=== PATIENT | male | born 1950 | race Caucasian/White ===

== ENCOUNTER 2018-03-13 13:30 | Inpatient (IN) | payer MEDICARE ==
[2018-03-13] MEDS ORDERED: Acetaminophen 325 MG TAB PO PRN (16:57)
[2018-03-13] MEDS: Famotidine 20 MG TAB PO SCH (20:19)
[2018-03-13] MEDS: Senokot S 8.6-50 MG TAB PO SCH (20:19)
[2018-03-13] MEDS: Heparin 5,000 UNITS/ML VIAL SC SCH (20:19)
[2018-03-13] MEDS: HYDROcodone/Acetaminophen 7.5/325 mg Tablet PO PRN (20:20)
[2018-03-13] MEDS: Magnesium Chloride 64 MG TAB PO SCH (21:59)
[2018-03-14] MEDS: AMOXicillin 500 MG CAP PO SCH ×2 (00:16→06:11)
[2018-03-14 05:37] LABS: #Basophils 0.1 thou/uL (0.0-0.2); #Eosinphils 0.1 thou/uL (0.0-0.7); #Lymphocytes 1.7 thou/uL (1.20-3.40); #Monocytes 1.2 thou/uL (0.11-0.59); #Neutrophils 12.9 thou/uL (1.40-6.50); %Basophils 0.4 % (0.0-1.0); %Eosinophils 0.4 % (0.0-10.0); %Lymphocytes 10.8 % (21.0-51.0); %Monocytes 7.3 % (0.0-10.0); %Neutrophils 81.2 % (42.0-75.0); Hemoglobin 8.7 g/dL (14.0-18.0); Mean Corpuscular HGB CONC 31.8 g/dL (32.0-36.0); Mean Corpuscular Hemoglobin 28.5 pg (27.0-31.0); Mean Corpuscular Volume 89.5 fL (78.0-98.0); Mean Platelet Volume 5.7 fL (7.4-10.4); Platelet Count 243 thou/uL (130-400); RBC Distribution Width 14.2 % (11.5-14.5); Red Blood Cell (RBC) Count 3.06 mill/uL (4.70-6.10); White Blood Cell (WBC) Count 15.9 thou/uL (4.8-10.8)
[2018-03-14] MEDS: AMOXicillin 250 MG CAP PO SCH ×3 (06:10→21:18)
[2018-03-14] MEDS: Senokot S 8.6-50 MG TAB PO SCH (08:54)
[2018-03-14] MEDS: Bicalutamide 50 MG TAB PO SCH (08:56)
[2018-03-14] MEDS: Multivitamin W/ Minerals 1 TAB PO SCH (08:56)
[2018-03-14] MEDS: Aspirin 81 mg Enteric Coated Tablet PO SCH (08:56)
[2018-03-14] MEDS: Tamsulosin HCl 0.4 MG CAP PO SCH (08:56)
[2018-03-14] MEDS: predniSONE 10 MG TAB PO SCH (08:57)
[2018-03-14] MEDS: Fludrocortisone Acetate 0.1 MG TAB PO SCH (08:57)
[2018-03-14] MEDS: Finasteride 5 MG TAB PO SCH (08:57)
[2018-03-14] MEDS: Famotidine 20 MG TAB PO SCH ×2 (08:57→21:17)
[2018-03-14] MEDS: Heparin 5,000 UNITS/ML VIAL SC SCH ×2 (08:58→21:18)
[2018-03-14] MEDS: HYDROcodone/Acetaminophen 7.5/325 mg Tablet PO PRN ×3 (09:00→22:42)
[2018-03-14] MEDS ORDERED: Polyethylene Glycol 3350 17 GM Packet PO SCH (09:00)
[2018-03-14] MEDS: KPHOS NEUTRAL PO SCH (09:03)
[2018-03-14] MEDS: Dronabinol 2.5 MG CAP PO SCH ×2 (09:04→16:16)
[2018-03-14] MEDS: Magnesium Chloride 64 MG TAB PO SCH ×2 (10:51→22:46)
[2018-03-14] MEDS ORDERED: Polyethylene Glycol 3350 17 GM Packet PO PRN (12:36)
[2018-03-14] MEDS ORDERED: Senokot S 8.6-50 MG TAB PO PRN (12:36)
--- NOTE | 2018-03-14 12:44 | PRG ---
DATE OF SERVICE: 03/14/2018 SUBJECTIVE: Mr. Dooley is doing well. He is resting comfortably. Pain medicines are helping. He di d have one episode of diarrhea. No other concerns or questions. No family at bedside. OBJECTIVE: VITAL SIGNS: He is afebrile, heart rate 99, respirations 18, oxygen saturation 92% on room air, bloo d pressure 133/64. CARDIOVASCULAR: S1, S2 plus. RESPIRATORY: Normal vesicular breath sounds. ABDOMEN: Soft, nontender. Bowel sounds heard in all quadrants. EXTREMITIES: Without cyanosis or clubbing. Woodall catheter in place. CENTRAL NERVOUS SYSTEM: Generalized weakness. LABORATORY VALUES: White count is the same 15.9, H and H is 8.7 and 27.4. Electrolytes are pending. IMPRESSION: 1. Resolving enterococcal urinary tract infection and bacteremia. 2. Chronic urinary retention. Has an indwelling Woodall. 3. Metastatic prostate cancer, now on adrenosuppressive therapy with ketaconazole and mineralocortic oid and glucocorticoid replacement therapy with prednisone and Florinef. 4. Resolved acute renal failure. 5. Persistent leukocytosis. 6. Anemia, likely of chronic disease. PLAN: 1. Continue current medications. 2. Nutritional support. 3. DVT and stress ulcer prophylaxis. 4. Decubitus precautions. 5. Physical therapy and occupational therapy. 6. Await BNP. 7. Discussed with patient in detail. Dr. Gomez or Dr. Robles will be following him from tom[place] w until his discharge. Discussed with nursing as well. His MiraLax will be discontinued if he has a ny further diarrhea. We will get stool for C. difficile. Given the orders to nursing. We will add a probiotic.
--- NOTE | 2018-03-14 13:49 | HP ---
DATE OF DISCHARGE: 03/13/2018 DATE OF EXAMINATION: 03/14/2018 CHIEF COMPLAINTS: Enterococcal bacteremia with metastatic prostate cancer and deconditioning for con tinuation of antibiotics, nutritional support and physical therapy. BRIEF HISTORY: This is a 67-year-old male who has history of prostate cancer and opted to just monitor it and not undergo any chemotherapy. Apparently developed urinary retention and was on a chronic Woodall catheter. He apparently was doing well until yearly January or February when he had issues with Woodall catheter, so he just removed it and did not have it replaced. He apparently had difficult y with urination over the weekend and then started developing fever, chills, and weakness. He was ev aluated in the emergency room as his outpatient antibiotics were not helping. He was noted to have a temperature of 103.2, blood pressure of 117/77 and was admitted to the hospital for urosepsis and ur inary retention. He was diagnosed with enterococcal bacteremia as well as enterococcal UTI, was init ially on IV antibiotics and then was switched over to amoxicillin and he is to continue it for 2 more weeks. He also had a CAT scan done which shows metastatic prostate cancer and apparently is amenabl e for treatment at this point from Urology. Urology is apparently doing some adrenal suppression wit h ketaconazole and during that time, he will be on prednisone and Florinef. He is supposed to follow up with Urology in a week where he will be transitioned to Lupron injections and at that time his pr ednisone and Florinef will be discontinued. He currently is on Casodex. Other than pain, he denies any complaints. He denies any fever or chills. He denies any chest pain or shortness of breath. He does have a Woodall catheter in. No family at bedside. PAST MEDICAL HISTORY: 1. Hypertension. 2. Degenerative joint disease. 3. Familial tremors. 4. Prostate cancer. 5. Resolving enterococcal UTI and bacteremia. 6. Chronic urinary retention. 7. Resolved acute renal failure. 8. Generalized weakness. PAST SURGICAL HISTORY: Right wrist surgery. ALLERGIES: No known drug allergies. MEDICATIONS: He has been transferred here on the following medications: 1. Amoxicillin 500 mg t.i.d. for 10 more days. 2. Casodex 50 mg daily. 3. Aspirin 81 mg daily. 4. Cardizem 30 mg p.o. b.i.d. since he had an episode of SVT. 5. Marinol 2.5 mg b.i.d. that seems to be helping with his appetite. 6. Pepcid 20 mg b.i.d. 7. Finasteride 5 mg daily. 8. Florinef 0.1 mg daily. 9. Heparin 5000 units b.i.d. 10. [place] 7.5 mg q.4 hours p.r.n. 11. Ketaconazole 400 mg t.i.d. 12. K-Phos Neutral 250 mg daily. 13. Slow-Mag 64 mg b.i.d. 14. Multivitamin 1 tablet daily. 15. MiraLax 17 grams in 8 ounce of water daily. 16. Prednisone 10 mg daily. 17. Senokot 1 tablet b.i.d. 18. Flomax 0.4 mg daily. He did have some diarrhea this morning and I will stop his MiraLax and change his Senokot to p.r.n. FAMILY HISTORY: Positive for tremor. PSYCHOSOCIAL HISTORY: He apparently ambulates with the help of a cane. He chews tobacco. Social al cohol intake, no drug abuse. REVIEW OF SYSTEMS: Cardiovascular System: Denies any chest pain, shortness of breath, palpitations, PND, orthopnea, pedal edema. Respiratory System: Denies any chronic cough, expectoration or pleuri tic type chest pain. Gastrointestinal System: Denies any nausea, vomiting, diarrhea, constipation, hematemesis, melena, hematochezia. Genitourinary System: Chronic urinary retention requiring Woodall catheter. No hematuria. Central nervous system: Generalized weakness. SHEENT: No difficulty with speech, vision, hearing or swallowing. PHYSICAL EXAMINATION: GENERAL: Very pleasant 67-year-old male resting comfortably in no apparent distress. He r esponds appropriately to questions. He is alert, awake, and oriented x3. VITAL SIGNS: He is afebrile, heart rate is 82, respirations 20, oxygen saturation 95% on room air, b lood pressure 111/61. HEENT: Normocephalic, atraumatic. Pupils equal and reactive to light and accommodation. NECK: No JVD, thyromegaly or adenopathy, throat exudates, no carotid bruits. CARDIOVASCULAR SYSTEM: S1, S2 plus, rate and rhythm regular. RESPIRATORY SYSTEM: Normal vesicular breath sounds heard in all lung pate. ABDOMEN: Soft, nontender, bowel sounds heard in all quadrants. EXTREMITIES: Without cyanosis or clubbing. Peripheral pulses are palpable. CENTRAL NERVOUS SYSTEM: Grossly nonfocal except for generalized weakness. Woodall catheter in place. LABORATORY VALUES: Done on 03/11/2018 and the previous facility shows a white count of 15.6, H&H is 9.5 and 28.6. Sodium 134, potassium 4.1, BUN and creatinine is 21 and 0.97. IMPRESSION: 1. Resolving enterococcal urinary tract infection and bacteremia. 2. Resolved acute renal failure. 3. Episode of supraventricular tachycardia. 4. Deconditioning. 5. Metastatic prostate cancer. 6. Chronic urinary retention. 7. Hyponatremia. 8. Persistent leukocytosis. PLAN: 1. Continue current medications. 2. Monitor electrolytes and blood counts. 3. Monitor for any signs of adrenal insufficiency. 4. Physical therapy and occupational therapy. 5. Nutritional support. 6. DVT prophylaxis. He is on heparin. 7. Routine laboratory values. 8. Decubitus precautions. 9. Stress ulcer prophylaxis. He is on Pepcid. 10. Discussed with patient in detail. All questions answered. 11. No family at bedside.
[2018-03-15] MEDS: AMOXicillin 250 MG CAP PO SCH ×3 (05:22→21:17)
[2018-03-15] MEDS: HYDROcodone/Acetaminophen 7.5/325 mg Tablet PO PRN ×3 (05:22→21:17)
[2018-03-15 05:37] LABS: Anion Gap 17 mmol/L (10-20); BUN (Urea Nitrogen) 19 mg/dL (8.4-25.7); Calc. Creatinine Clearance 88 mL/min (70-130); Calcium 8.6 mg/dL (7.8-10.44); Carbon Dioxide 27 mmol/L (23-31); Chloride 99 mmol/L (98-107); Estimated GFR-MDRD 68; Glucose 113 mg/dL (80-115); Potassium 4.1 mmol/L (3.5-5.1); Sodium 139 mmol/L (136-145)
[2018-03-15] MEDS: Multivitamin W/ Minerals 1 TAB PO SCH (08:15)
[2018-03-15] MEDS: Fludrocortisone Acetate 0.1 MG TAB PO SCH (08:15)
[2018-03-15] MEDS: Famotidine 20 MG TAB PO SCH ×2 (08:15→21:19)
[2018-03-15] MEDS: Dronabinol 2.5 MG CAP PO SCH ×2 (08:15→16:11)
[2018-03-15] MEDS: Magnesium Chloride 64 MG TAB PO SCH ×2 (08:17→21:16)
[2018-03-15] MEDS: Bicalutamide 50 MG TAB PO SCH (08:17)
[2018-03-15] MEDS: Aspirin 81 mg Enteric Coated Tablet PO SCH (08:17)
[2018-03-15] MEDS: Finasteride 5 MG TAB PO SCH (08:17)
[2018-03-15] MEDS: predniSONE 10 MG TAB PO SCH (08:17)
[2018-03-15] MEDS: Tamsulosin HCl 0.4 MG CAP PO SCH (08:17)
[2018-03-15] MEDS: KPHOS NEUTRAL PO SCH (08:18)
[2018-03-15] MEDS: Heparin 5,000 UNITS/ML VIAL SC SCH ×2 (08:18→21:19)
[2018-03-15] MEDS ORDERED: Heparin 5,000 UNITS/ML VIAL SC SCH (21:15)
[2018-03-16] MEDS: HYDROcodone/Acetaminophen 7.5/325 mg Tablet PO PRN ×2 (03:10→21:23)
[2018-03-16] MEDS: AMOXicillin 250 MG CAP PO SCH ×3 (05:52→21:24)
[2018-03-16] MEDS: Dronabinol 2.5 MG CAP PO SCH ×2 (07:29→16:14)
[2018-03-16] MEDS: predniSONE 10 MG TAB PO SCH (08:40)
[2018-03-16] MEDS: Bicalutamide 50 MG TAB PO SCH (08:43)
[2018-03-16] MEDS: Famotidine 20 MG TAB PO SCH ×2 (08:43→21:23)
[2018-03-16] MEDS: Fludrocortisone Acetate 0.1 MG TAB PO SCH (08:43)
[2018-03-16] MEDS: Tamsulosin HCl 0.4 MG CAP PO SCH (08:44)
[2018-03-16] MEDS: Aspirin 81 mg Enteric Coated Tablet PO SCH (08:45)
[2018-03-16] MEDS: Finasteride 5 MG TAB PO SCH (08:45)
[2018-03-16] MEDS: Multivitamin W/ Minerals 1 TAB PO SCH (08:45)
[2018-03-16] MEDS: Heparin 5,000 UNITS/ML VIAL SC SCH ×2 (08:46→21:23)
[2018-03-16] MEDS: Magnesium Chloride 64 MG TAB PO SCH ×2 (09:28→21:21)
[2018-03-16] MEDS: KPHOS NEUTRAL PO SCH (09:28)
[2018-03-16 12:38] VITALS: BMI 27.9
--- NOTE | 2018-03-16 17:42 | PRG ---
DATE OF SERVICE: 03/16/2018 DATE OF ADMISSION: 03/13/2018 HISTORY OF PRESENT ILLNESS: Mr. Dooley is a very pleasant 67-year-old white male with history of pros valencia cancer that recently developed urinary retention. He has been placed on chronic Woodall catheter and doing well until January or February when he had issues with a catheter. It was removed and he had some urinary retention. He developed urosepsis and was diagnosed with enterococcal bacteremia as well as enterococcal urinary tract infection. He was initially started on IV antibiotics and eventually swi tched over to amoxicillin. He did have a CT scan which showed metastatic prostate cancer and Urology is suppressing his adrenal glands with ketaconazole while he is on prednisone and Florinef. He is t o follow up with Urology next week to transition over to Lupron injections. Until then, he will be o n prednisone and Florinef. He also is on Casodex at this time. SUBJECTIVE: The patient states he is doing well and just somewhat tired. He states he is getting a little therapy and moving around. OBJECTIVE: VITAL SIGNS: Today reveal blood pressure this morning was 134/67, pulse 91-95, respirations 18, O2 s at 99%-100% on room air, T-max 98.1. GENERAL: This is a well-developed, well-nourished, white male in no apparent distress at this time. HEENT: Reveals normocephalic, nontraumatic cranium. The pupils are equally round. Extraocular move ments intact. Nose and throat are slightly dry. NECK: Supple, without mass, nodes or bruits. CHEST: Clear to auscultation. No rales, rhonchi, wheezes or cough is heard. HEART: Reveals a regular rate and rhythm without murmurs, gallops or rubs. ABDOMEN: Soft and nontender without organomegaly. Normal bowel sounds are noted. GENITOURINARY: Reveals Woodall in place. EXTREMITIES: Reveal no clubbing, cyanosis or edema. The patient is oriented x3. LABORATORY DATA: No recent labs done today, but yesterday the patient's sodium is 139, potassium 4.1 with BUN 19, creatinine 1.09. GFR 68. Glucose is 113. IMPRESSION: 1. Enterococcal urinary tract infection and bacteremia. 2. Resolved acute renal failure. 3. Single episodes of ventricular tachycardia. 4. Generalized weakness. 5. Metastatic prostate cancer followed by Urology next week. 6. Chronic urinary retention with Woodall catheter in place. 7. History of hyponatremia. 8. Persistent leukocytosis. PLAN: 1. Continue present medications. 2. Continue to monitor electrolytes and blood counts. 3. Monitor for any signs of adrenal insufficiency. 4. Physical therapy and occupational therapy. 5. Stress ulcer prophylaxis. 6. Decubitus precautions. 7. Deep venous thrombosis prophylaxis. The patient is on heparin. 8. No family at bedside. 9. Continue present course of therapy.
[2018-03-17] MEDS: HYDROcodone/Acetaminophen 7.5/325 mg Tablet PO PRN ×3 (05:30→16:45)
[2018-03-17] MEDS: AMOXicillin 250 MG CAP PO SCH ×3 (05:30→21:12)
[2018-03-17] MEDS: Dronabinol 2.5 MG CAP PO SCH ×2 (07:39→16:45)
[2018-03-17] MEDS: predniSONE 10 MG TAB PO SCH (08:55)
[2018-03-17] MEDS: KPHOS NEUTRAL PO SCH (09:27)
[2018-03-17] MEDS: Aspirin 81 mg Enteric Coated Tablet PO SCH (09:27)
[2018-03-17] MEDS: Tamsulosin HCl 0.4 MG CAP PO SCH (09:27)
[2018-03-17] MEDS: Multivitamin W/ Minerals 1 TAB PO SCH (09:28)
[2018-03-17] MEDS: Famotidine 20 MG TAB PO SCH ×2 (09:28→21:12)
[2018-03-17] MEDS: Fludrocortisone Acetate 0.1 MG TAB PO SCH (09:29)
[2018-03-17] MEDS: Bicalutamide 50 MG TAB PO SCH (09:30)
[2018-03-17] MEDS: Magnesium Chloride 64 MG TAB PO SCH ×2 (09:32→21:10)
[2018-03-17] MEDS: Finasteride 5 MG TAB PO SCH (09:33)
[2018-03-17] MEDS: Heparin 5,000 UNITS/ML VIAL SC SCH ×2 (09:35→21:13)
--- NOTE | 2018-03-17 09:38 | PRG ---
DATE OF SERVICE: 03/17/2018 DATE OF ADMISSION: 03/13/2018 HISTORY OF PRESENT ILLNESS: Mr. Dooley is a pleasant 67-year-old white male that has prostate cancer, deconditioning and urinary retention. He had chronic Woodall catheter in place and was doing well unt february until the catheter was removed. He has some urinary retention, but then developed urosepsis with Enterococcus bacteremia and enterococcal urinary tract infection. He was started on IV antibiot ics and eventually switched over to amoxicillin. He had a CT scan which showed metastatic prostate c ancer. Urology suppressing his adrenal glands with ketoconazole while he is on prednisone and [place] ef. He is to be followed up with Urology next week and transition over to Lupron injections. Until then, we will continue his present course. He is also on Casodex. SUBJECTIVE: The patient unfortunately had a panic attack this morning and the nurse had to go and ta lk him down for approximately 20 minutes. Just felt that he just became anxious. He did get started on fentanyl 25 patch which seems to help a little bit. PHYSICAL EXAMINATION: VITAL SIGNS: Today reveal blood pressure 126/69, pulse 90, respirations 18-20, O2 sat 94% on room ai r, T-max 98.2. GENERAL: This is a well-developed, well-nourished, very pleasant white male in no apparent distress at this time. HEENT: Reveals normocephalic, nontraumatic cranium. Pupils are equal, round, and reactive. Extraoc ular movements are intact. Nose and throat are dry. NECK: Supple, without mass, nodes or bruits. LUNGS: Chest is clear to auscultation. No rales, rhonchi or wheezes are heard. HEART: Reveals a regular rate and rhythm. No murmurs, gallops or rubs noted. ABDOMEN: Soft, nontender, without organomegaly, normal bowel sounds are noted. : Deferred. Woodall catheter is in place. EXTREMITIES: Reveal no clubbing, cyanosis or edema. NEUROLOGIC: The patient is oriented x3. The patient did have a panic attack this morning. IMPRESSION: 1. Enterococcal urinary tract infection bacteremia. 2. Resolved acute renal insufficiency. 3. Panic attack this morning. 4. Prior episodes of ventricular tachycardia. 5. Generalized weakness. 6. Metastatic prostate cancer, followed by Urology next week. 7. Chronic urinary retention with Woodall catheter. 8. History of hyponatremia. 9. Persistent leukocytosis. PLAN: 1. Continue present medications. 2. We will add Xanax 0.25 p.r.n. panic attacks. 3. Continue to monitor the patient's electrolytes and blood counts. 4. We will monitor the patient for signs and symptoms of adrenal insufficiency. 5. Continue PT and OT. 6. Stress ulcer prophylaxis. 7. Decubitus precautions. 8. Continue Woodall catheterization. 9. Deep venous thrombosis. 10. No family is at bedside. 11. Continue present course of therapy.
[2018-03-17] MEDS: ALPRAZolam 0.25 MG TAB PO PRN (21:13)
[2018-03-18] MEDS: HYDROcodone/Acetaminophen 7.5/325 mg Tablet PO PRN ×2 (03:24→14:03)
[2018-03-18] MEDS: AMOXicillin 250 MG CAP PO SCH ×3 (05:22→21:11)
[2018-03-18] MEDS: Dronabinol 2.5 MG CAP PO SCH ×2 (08:22→17:20)
[2018-03-18] MEDS: predniSONE 10 MG TAB PO SCH (08:22)
--- NOTE | 2018-03-18 09:01 | PRG ---
DATE OF SERVICE: 03/18/2018 DATE OF ADMISSION: 03/13/2018 HISTORY OF PRESENT ILLNESS: Mr. Dooley is a 67-year-old white male that had a panic attack yesterday. He will be started on Xanax if that act happens again. Otherwise, the patient has prostate cancer, decreasing urinary retention. He continues on amoxicillin at this time for urinary tract infection. He had a CT scan which showed metastatic prostate cancer and Urology is supposed to see him next we ek to get him started on Lupron injections. Until then, he will continue his course of suppressing a drenal glands with ketoconazole while he is on prednisone and Florinef. The patient states he feels much better today and has no complaints today. PHYSICAL EXAMINATION: VITAL SIGNS: Today reveal blood pressure 121/61, pulse 88-90, respirations 19, O2 sat 93%-94% on devante m air, T-max 98.7. GENERAL: This is a well-developed, well-nourished, pleasant white male in no apparent distress at th is time. HEENT: Reveals normocephalic, nontraumatic cranium. Pupils equal, round, and reactive. Extraocular movements are intact. Nose and throat are slightly dry. NECK: Supple, without mass, nodes or bruits. CHEST: Clear to auscultation. No rales, rhonchi or wheezes are heard. HEART: Reveals a regular rate and rhythm without murmurs, gallops or rubs. ABDOMEN: Soft and nontender without organomegaly, normal bowel sounds are noted. No rebound or guar ding is noted. GENITOURINARY: Deferred. EXTREMITIES: Reveal no clubbing, cyanosis or edema. NEUROLOGIC: The patient is oriented x3. IMPRESSION: 1. Enterococcal urinary tract infection bacteremia. 2. Acute renal insufficiency, much improved. 3. Panic attack yesterday morning. 4. Prior episodes of ventricular tachycardia. 5. Generalized weakness. 6. Metastatic prostate cancer followed by Urology and so patient is supposed to have Lupron injectio n next week. 7. Chronic urinary tract infection, chronic urinary retention with Woodall catheter. 8. History of hypernatremia. 9. Persistent leukocytosis. PLAN: 1. Continue present meds. 2. Xanax p.r.n. panic attacks. 3. Continue to follow the patient's electrolytes and blood counts. 4. Monitor the patient for signs and symptoms of adrenal insufficiency. 5. Continue PT and OT. 6. Stress ulcer prophylaxis. 7. Decubitus precautions. 8. Continue Woodall catheterization. 9. Deep venous thrombosis prophylaxis. 10. Family at bedside. 11. Continue present course of therapy.
[2018-03-18] MEDS: Fludrocortisone Acetate 0.1 MG TAB PO SCH (09:50)
[2018-03-18] MEDS: Famotidine 20 MG TAB PO SCH ×2 (09:50→21:12)
[2018-03-18] MEDS: Aspirin 81 mg Enteric Coated Tablet PO SCH (09:50)
[2018-03-18] MEDS: Magnesium Chloride 64 MG TAB PO SCH ×2 (09:50→21:10)
[2018-03-18] MEDS: Finasteride 5 MG TAB PO SCH (09:50)
[2018-03-18] MEDS: Multivitamin W/ Minerals 1 TAB PO SCH (09:56)
[2018-03-18] MEDS: Bicalutamide 50 MG TAB PO SCH (09:56)
[2018-03-18] MEDS: KPHOS NEUTRAL PO SCH (09:58)
[2018-03-18] MEDS: Tamsulosin HCl 0.4 MG CAP PO SCH (09:58)
[2018-03-18] MEDS: Heparin 5,000 UNITS/ML VIAL SC SCH ×2 (10:11→21:13)
[2018-03-18] MEDS: ALPRAZolam 0.25 MG TAB PO PRN (21:13)
[2018-03-19] MEDS: HYDROcodone/Acetaminophen 7.5/325 mg Tablet PO PRN ×2 (04:45→12:24)
[2018-03-19] MEDS: Dronabinol 2.5 MG CAP PO SCH ×2 (06:21→18:43)
[2018-03-19] MEDS: AMOXicillin 250 MG CAP PO SCH ×3 (06:21→20:59)
[2018-03-19] MEDS ORDERED: K-Phos Neutral 250 MG TAB PO SCH (10:15)
[2018-03-19] MEDS: Heparin 5,000 UNITS/ML VIAL SC SCH ×2 (12:24→20:58)
[2018-03-19] MEDS: Famotidine 20 MG TAB PO SCH ×2 (12:26→20:59)
[2018-03-19] MEDS: Finasteride 5 MG TAB PO SCH (12:26)
[2018-03-19] MEDS: Aspirin 81 mg Enteric Coated Tablet PO SCH (12:27)
[2018-03-19] MEDS: Fludrocortisone Acetate 0.1 MG TAB PO SCH (12:27)
[2018-03-19] MEDS: Tamsulosin HCl 0.4 MG CAP PO SCH (12:27)
[2018-03-19] MEDS: Multivitamin W/ Minerals 1 TAB PO SCH (12:27)
[2018-03-19] MEDS: predniSONE 10 MG TAB PO SCH (12:27)
[2018-03-19] MEDS: Bicalutamide 50 MG TAB PO SCH (12:27)
[2018-03-19] MEDS: Magnesium Chloride 64 MG TAB PO SCH ×2 (12:28→20:58)
[2018-03-19] MEDS: KPHOS NEUTRAL PO SCH (12:30)
[2018-03-19] MEDS: ALPRAZolam 0.25 MG TAB PO PRN (20:59)
[2018-03-20] MEDS: AMOXicillin 250 MG CAP PO SCH ×3 (05:17→20:43)
[2018-03-20] MEDS: Dronabinol 2.5 MG CAP PO SCH ×2 (09:51→16:08)
[2018-03-20] MEDS: predniSONE 10 MG TAB PO SCH (09:51)
[2018-03-20] MEDS: Aspirin 81 mg Enteric Coated Tablet PO SCH (09:51)
[2018-03-20] MEDS: Bicalutamide 50 MG TAB PO SCH (09:52)
[2018-03-20] MEDS: Famotidine 20 MG TAB PO SCH ×2 (09:54→20:45)
[2018-03-20] MEDS: Finasteride 5 MG TAB PO SCH (09:55)
[2018-03-20] MEDS: Fludrocortisone Acetate 0.1 MG TAB PO SCH (09:55)
[2018-03-20] MEDS: Heparin 5,000 UNITS/ML VIAL SC SCH ×2 (09:55→20:43)
[2018-03-20] MEDS: Magnesium Chloride 64 MG TAB PO SCH ×2 (09:56→20:42)
[2018-03-20] MEDS: Tamsulosin HCl 0.4 MG CAP PO SCH (09:56)
[2018-03-20] MEDS: Multivitamin W/ Minerals 1 TAB PO SCH (09:56)
[2018-03-20] MEDS: K-Phos Neutral 250 MG TAB PO SCH (13:57)
[2018-03-20] MEDS: HYDROcodone/Acetaminophen 7.5/325 mg Tablet PO PRN ×2 (14:03→20:44)
--- NOTE | 2018-03-20 21:44 | PRG ---
DATE OF SERVICE: 03/20/2018 DATE OF ADMISSION: 03/13/2018 HISTORY OF PRESENT ILLNESS: Mr. Dooley is a very pleasant 67-year-old white male unfortunately has me tastatic prostate cancer. He is followed by Urology was started on Lupron injections a couple of day s ago. He eventually was stabilized and transferred to [facility] for physical thera py and occupational therapy. I did discuss with PT and OT and the patient is actually doing very well. We will discharge him on F riday. The patient states he continues to feel better and is much stronger. PHYSICAL EXAMINATION: VITAL SIGNS: Today reveal blood pressure 143/74, pulse 86-96, respirations 18-20, O2 sat 92% on room air, T-max 98.0. GENERAL: This is a well-developed, well-nourished, very pleasant white male in no apparent distress at this time. HEENT: Reveals normocephalic, nontraumatic cranium. The pupils are equally round and reactive. Ext raocular movements are intact. Nose and throat are slightly dry, but clear. NECK: Supple, without mass, nodes or bruits. LUNGS: Chest is clear to auscultation. No rales, no rhonchi, no wheezes are heard. HEART: Reveals a regular rate and rhythm without murmurs, gallops or rubs. ABDOMEN: Soft. Normal bowel sounds are noted. No rebound or guarding is noted. : Deferred. The patient has Woodall catheter in. EXTREMITIES: Reveal no clubbing, cyanosis or edema. NEUROLOGIC: Patient is oriented x3. IMPRESSION: 1. Enterococcal urinary tract infection, bacteremia. 2. Acute renal insufficiency, much improved. 3. Panic attack yesterday morning. 4. Prior episodes of ventricular tachycardia. 5. Generalized weakness. 6. Metastatic prostate cancer, followed by Urology. The patient was supposed to have his Lupron solo t yesterday. 7. Chronic urinary tract infection with chronic urinary retention with Woodall catheter. 8. History of hypernatremia. 9. Persistent leukocytosis. PLAN: 1. Continue present meds. 2. Xanax p.r.n. panic attacks. 3. Continue to follow the patient's electrolytes and blood counts. 4. Monitor the patient for signs and symptoms of adrenal insufficiency. 5. Continue PT and OT. 6. Stress ulcer prophylaxis. 7. Decubitus precautions. 8. Continue Woodall catheter. 9. Deep venous thrombosis prophylaxis. 10. Family at bedside. 11. Continue present course of therapy.
--- NOTE | 2018-03-20 21:49 | PRG ---
DATE OF SERVICE: 03/19/2018 HISTORY OF PRESENT ILLNESS: Mr. Dooley is a 67-year-old white male that has a history of metastatic p rostate cancer. He has been followed by Dr. Shana Banda at [facility] and he is supposed to pulido ve a Lupron injection today. He is presently at her office. She will also adjust his ketaconazole and his steroids. Unfortunately, Mr. Dooley had a panic attack day before yesterday. He was started on Xanax and then h is actually helped quite a bit. He is feeling much better today. Patient was seen after hours after return from Dr. Banda's office. He did have his Lupron shot. We are stopping his ketaconazole and weaning his steroids after 5 days. He has no complaints today. He states he is doing well. PHYSICAL EXAMINATION: GENERAL: Reveals a well-developed, well-nourished, white male in no apparent distress at this time. HEENT: Reveals normocephalic, nontraumatic cranium. Pupils are equal, round, and reactive. Nose an d throat are clear. NECK: Supple, without mass, nodes or bruits. CHEST: Clear to auscultation. No rales, rhonchi or wheezes are heard. CARDIOVASCULAR: Reveals a regular rate and rhythm. ABDOMEN: Soft, nontender. Normal bowel sounds are noted. No rebound or guarding is noted. : Reveals Woodall catheter still in place. EXTREMITIES: Reveal no clubbing, cyanosis or edema. IMPRESSION: 1. Enterococcal urinary tract infection and bacteremia, resolved. 2. Acute renal insufficiency, improved. 3. Panic attack two days ago, much improved. 4. Prior episode of ventricular tachycardia. 5. Generalized weakness. 6. Metastatic prostate cancer followed by Dr. Gemma Banda, urologist and the patient did have a Lup hilary shot today. 7. Chronic urinary retention with Woodall catheter in place. 8. History of hypernatremia. 9. Persistent leukocytosis. PLAN: 1. Continue present meds. 2. Xanax again p.r.n. 3. Follow the patient's electrolytes and blood counts. 4. Monitor the patient for signs and symptoms of adrenal insufficiency. 5. Stress ulcer prophylaxis. 6. Decubitus care. 7. Deep venous thrombosis prophylaxis. 8. DVT precautions. 9. Continue physical therapy and occupational therapy.
[2018-03-21] MEDS: AMOXicillin 250 MG CAP PO SCH ×3 (05:14→21:18)
[2018-03-21] MEDS: predniSONE 10 MG TAB PO SCH (07:32)
[2018-03-21] MEDS: Dronabinol 2.5 MG CAP PO SCH ×2 (07:32→17:02)
[2018-03-21] MEDS: Multivitamin W/ Minerals 1 TAB PO SCH (10:11)
[2018-03-21] MEDS: K-Phos Neutral 250 MG TAB PO SCH (10:12)
[2018-03-21] MEDS: Famotidine 20 MG TAB PO SCH ×2 (10:13→21:18)
[2018-03-21] MEDS: Aspirin 81 mg Enteric Coated Tablet PO SCH (10:14)
[2018-03-21] MEDS: Bicalutamide 50 MG TAB PO SCH (10:14)
[2018-03-21] MEDS: Finasteride 5 MG TAB PO SCH (10:15)
[2018-03-21] MEDS: Fludrocortisone Acetate 0.1 MG TAB PO SCH (10:16)
[2018-03-21] MEDS: Tamsulosin HCl 0.4 MG CAP PO SCH (10:16)
[2018-03-21] MEDS: Magnesium Chloride 64 MG TAB PO SCH ×2 (10:16→21:17)
[2018-03-21] MEDS: HYDROcodone/Acetaminophen 7.5/325 mg Tablet PO PRN (10:21)
[2018-03-21] MEDS: Heparin 5,000 UNITS/ML VIAL SC SCH ×2 (10:27→21:19)
--- NOTE | 2018-03-21 20:04 | PRG ---
DATE OF SERVICE: 03/21/2018 DATE OF ADMISSION: 03/13/2018 HISTORY OF PRESENT ILLNESS: Mr. Dooley is a 67-year-old white male with history of metastatic prostat e cancer, followed by Dr. Banda at [facility], supposed to have Lupron shots a couple days ago. He presented to the office, he did get the shots. He also adjusted his ketaconazole and steroi ds. Unfortunately, Mr. Dooley had a panic attack couple of days prior he was started on Xanax. This has actually helped him quite a bit. The patient states he has a very good mood today and ready to go home on Monday afternoon. I did dis cuss the patient's case with physical therapy and occupational therapy. They state he will do well w hen he gets home. He is considering hospice care when he gets home because of his prostate cancer. He has no complaints today. PHYSICAL EXAMINATION: VITAL SIGNS: Today reveal blood pressure is 148/70, pulse 91-88, respirations 20, O2 sat 93% on room air, T-max 98.0. GENERAL: This is a well-developed, well-nourished, slightly obese white male in no apparent distress at this time. HEENT: Reveals normocephalic, nontraumatic cranium. Pupils equal, round, and reactive. Extraocular movements intact. Nose: Slight dry. NECK: Supple, without mass, nodes or bruits. LUNGS: Chest is clear to auscultation. No rales, rhonchi or wheezes are heard. CARDIOVASCULAR: Reveals a regular rate and rhythm without murmurs, gallops, rubs. ABDOMEN: Soft, nontender, without organomegaly. Normal bowel sounds are noted. No rebound or guard ing is noted. GENITOURINARY: Deferred. EXTREMITIES: Reveal no clubbing, cyanosis or edema. Woodall catheter is in place. IMPRESSION: 1. Enterococcal urinary tract infection, bacteremia, resolved. 2. Acute renal insufficiency, improved. 3. Panic attack 3 days ago, much improved. 4. Prior episode of ventricular tachycardia. 5. Generalized weakness. 6. Metastatic prostate cancer followed by Dr. Gemma Banda, urologist. 7. Chronic urinary retention with Woodall catheter in place. 8. Hypertension. 9. Hypernatremia. 10. Persistent leukocytosis, much improved. PLAN: 1. Continue present meds. 2. Continue Casodex. 3. The patient is off her ketaconazole and weaning off the steroids. 4. Xanax p.r.n. 5. Follow the patient's electrolytes and blood clots. 6. Monitor the patient for signs and symptoms of adrenal insufficiency. 7. Monitor stress ulcer prophylaxis. 8. Decubitus precautions. 9. DVT. 10. DVT precaution. 11. Continue PT and OT.
[2018-03-21] MEDS ORDERED: AMOXicillin 250 MG CAP ONE ×2 (20:50)
[2018-03-21] MEDS: ALPRAZolam 0.25 MG TAB PO PRN (21:20)
[2018-03-22] MEDS ORDERED: AMOXicillin 250 MG CAP ONE (04:39)
[2018-03-22] MEDS: AMOXicillin 250 MG CAP PO SCH ×3 (05:40→21:21)
[2018-03-22] MEDS: Dronabinol 2.5 MG CAP PO SCH ×2 (08:23→17:09)
[2018-03-22] MEDS: HYDROcodone/Acetaminophen 7.5/325 mg Tablet PO PRN (08:26)
[2018-03-22] MEDS: predniSONE 10 MG TAB PO SCH (08:27)
[2018-03-22] MEDS: Magnesium Chloride 64 MG TAB PO SCH ×3 (09:37→23:54)
[2018-03-22] MEDS: K-Phos Neutral 250 MG TAB PO SCH (09:38)
[2018-03-22] MEDS: Tamsulosin HCl 0.4 MG CAP PO SCH (09:41)
[2018-03-22] MEDS: Aspirin 81 mg Enteric Coated Tablet PO SCH (09:42)
[2018-03-22] MEDS: Multivitamin W/ Minerals 1 TAB PO SCH (09:42)
[2018-03-22] MEDS: Famotidine 20 MG TAB PO SCH ×2 (09:42→21:22)
[2018-03-22] MEDS: Finasteride 5 MG TAB PO SCH (09:43)
[2018-03-22] MEDS: Fludrocortisone Acetate 0.1 MG TAB PO SCH (09:43)
[2018-03-22] MEDS: Bicalutamide 50 MG TAB PO SCH (09:44)
[2018-03-22] MEDS: Heparin 5,000 UNITS/ML VIAL SC SCH ×2 (09:48→21:22)
--- NOTE | 2018-03-22 20:40 | PRG ---
DATE OF SERVICE: 03/22/2018 HISTORY OF PRESENT ILLNESS: Mr. Dooley is a 67-year-old white male with a history of metastatic prost ate cancer followed by Dr. Banda. He is supposed to have Lupron shots and did get those a couple da ys ago. He presented to our office and she did take him off the ketaconazole and is weaning steroids . Mr. Dooley also had problems with panic attacks and was started on Xanax p.r.n. The patient states he is doing well and is anticipating going home tomorrow after lunch. He is consi dering hospice care when he gets home because of his prostate cancer. PHYSICAL EXAMINATION: VITAL SIGNS: Today reveal blood pressure 145/68, pulse 90-92, respirations 20, O2 saturation 94% on room air, T-max 98.5. GENERAL: He is a well-developed, well-nourished, slightly obese white male in no apparent distress a t this time. HEENT: Reveals normocephalic, nontraumatic cranium. Pupils are equal, round, and reactive. Extraoc ular movements intact. Nose and throat are slightly dry, but clear. NECK: Supple, without mass, nodes or bruits. CHEST: Clear to auscultation. No rales, rhonchi or wheezes are heard. CARDIOVASCULAR: Reveals a regular rate and rhythm without murmurs, gallops or rubs. ABDOMEN: Soft, nontender, without organomegaly. Normal bowel sounds are noted. No rebound or guard ing is noted. Patient has very poor appetite, does want to eat. : Deferred. Woodall catheter is in place. EXTREMITIES: Reveal no clubbing, cyanosis or edema. ASSESSMENT: 1. Enterococcal urinary tract infection, resolved. 2. Acute renal insufficiency, improved. 3. Panic attack 4 days ago, improved. 4. Prior history of ventricular tachycardia. 5. Generalized weakness. 6. Metastatic prostate cancer followed by Dr. Gemma Banda, urologist. 7. Chronic urinary retention with Woodall catheter in place. 8. Hypertension. 9. Hypernatremia. 10. Persistent leukocytosis, improved. PLAN: 1. Continue present meds. 2. Continue Casodex. 3. Continue ketaconazole, wean off steroids. 4. Xanax p.r.n. 5. Follow the patient's electrolytes and blood clots. 6. Monitor the patient for signs and symptoms of adrenal insufficiency. 7. Monitor stress ulcer prophylaxis. 8. Decubitus precautions. 9. DVT precautions. 10. Continue physical therapy and occupational therapy.
[2018-03-23] MEDS: AMOXicillin 250 MG CAP PO SCH ×2 (05:33→13:52)
[2018-03-23] MEDS: Dronabinol 2.5 MG CAP PO SCH (07:21)
[2018-03-23] MEDS: HYDROcodone/Acetaminophen 7.5/325 mg Tablet PO PRN ×2 (07:21→15:55)
[2018-03-23 08:16] VITALS: BP 152/73; TEMP 96.7
[2018-03-23] MEDS: Tamsulosin HCl 0.4 MG CAP PO SCH (09:31)
[2018-03-23] MEDS: Fludrocortisone Acetate 0.1 MG TAB PO SCH (09:32)
[2018-03-23] MEDS: Finasteride 5 MG TAB PO SCH (09:32)
[2018-03-23] MEDS: K-Phos Neutral 250 MG TAB PO SCH (09:33)
[2018-03-23] MEDS: Multivitamin W/ Minerals 1 TAB PO SCH (09:38)
[2018-03-23] MEDS: Aspirin 81 mg Enteric Coated Tablet PO SCH (09:39)
[2018-03-23] MEDS: Famotidine 20 MG TAB PO SCH (09:39)
[2018-03-23] MEDS: Bicalutamide 50 MG TAB PO SCH (09:41)
[2018-03-23] MEDS: Heparin 5,000 UNITS/ML VIAL SC SCH (09:41)
[2018-03-23] MEDS: Magnesium Chloride 64 MG TAB PO SCH (09:43)
--- NOTE | 2018-03-24 01:54 | DIS ---
DATE OF ADMISSION: 03/13/2018 DATE OF DISCHARGE: 03/23/2018 HOSPITAL COURSE: Mr. Dooley is a 67-year-old white male with a history of metastatic prostate cancer followed by Dr. Gemma Banda. He has been started on Lupron shots, has been in the hospital for phys ical therapy and occupational therapy and weaning off his steroids, ketaconazole. Patient has actual ly done very well here, but has reached maximum medical benefit and is being discharged today. Patient being discharged to his nephew's house who was Issa Valladares and the phone numbers [phone]. The patient's cell number may not be working, but patient's cell number is [phone]. DISCHARGE MEDICATIONS: Patient's discharge medications include the following, Tylenol p.r.n., aspiri n 81 mg daily, Casodex 50 mg daily, diltiazem 30 mg daily, Pepcid 20 mg twice a day. Patient has a f entanyl patch on, which 25 mcg q.3 days, but does not want that anymore. 1. Finasteride 5 mg daily. 2. Oxford 7.5 mg, which patient states he takes 1 or 2 or 3 a day. I gave him enough to last a few d ays until hospice gets there. I gave him 16 pills. 3. Tamsulosin, which is Flomax 0.4 mg. 4. The patient also has phosphorus 250 every day. 5. Slow-Mag 64 b.i.d. 6. Multivitamins and other supplements that he may or may not take. Patient states he is doing well and is ready to go home. He will be living with his nephew and his f rimagdy will be helping him. PHYSICAL EXAMINATION: VITAL SIGNS: Today reveal blood pressure 152/73, pulse 86, respirations 18-20, O2 saturation 95% on room air, T-max 96.7. GENERAL: This is a well-developed, well-nourished, very pleasant white male in no apparent distress at this time. HEENT: Revals normocephalic, nontraumatic cranium. Pupils are equally round and reactive. Extraocu lar movements intact. Nose and throat are slightly dry. NECK: Supple without mass, nodes, or bruits. CHEST: Clear to auscultation. No rales, rhonchi, or wheezes are heard. HEART: Regular rate and rhythm without murmurs, gallops, or rubs. ABDOMEN: Soft, nontender without organomegaly, normal bowel sounds are noted. No rebound or guardin g is noted. Patient has poor appetite, does not want to eat, does not want Marinol anymore. GENITOURINARY: Reveals Woodall catheter in place. EXTREMITIES: Reveal no clubbing, cyanosis, or edema. ASSESSMENT: 1. Enterococcal urinary tract infection, resolved. 2. Acute renal insufficiency, improved. 3. Panic attack 4 days ago, improved. 4. Prior history of ventricular tachycardia. 5. Generalized weakness. 6. Metastatic prostate cancer followed by Dr. Gemma Banda, the urologist. 7. Chronic urinary retention with Woodall catheter in place. 8. Hypertension. 9. Hypernatremia, resolved. 10. Persistent leukocytosis improved. PLAN: 1. Patient is being discharged and will seek hospice care. He states he will go with [facility] and did contact them. 2. Continue Casodex. 3. Patient does not want ketaconazole steroids. 4. Patient does not want Xanax. 5. Patient will continue with his Proscar and his Flomax. 6. Continue DVT precautions. 7. The patient is being discharged and I have sent a prescription to the [facility] fo r Oxford 7.5 complete with 16 pills. I spent more than 45 minutes getting Mr. Dooley' chart, medications etc. ready for him for discharge.
--- NOTE | 2018-03-27 09:23 | PQF ---
Gilmar Dooley C. HENRY MD [id number] [id number] CLINICAL DOCUMENTATION CLARIFICATION FORM: POST DISCHARGE DATE: 03/27/2018 ATTN : Dr. Gomez Please exercise your independent, professional judgment in responding to the clarification form. Clinical indicators are provided on the bottom of this form for your review Please check appropriate box(s): [ ] UTI please specify if due to or related to (as applicable): [ ] Indwelling catheter [ ] Other (please specify) [ ] Unable to determine etiology UTI Site: [ ] Kidney [ ] Ureter [ ] Bladder [ ] Urethra [ ] Unable to determine [ ] Other diagnosis (please specify) [ ] Unable to determine In addition, please specify: Present on Admission (POA): [ ] Yes [ ] No [ ] Unable to determine For continuity of documentation, please document condition throughout progress notes and discharge summary. Thank You. CLINICAL INDICATORS - SIGNS / SYMPTOMS / LABS Per H&P: Transferred to [facility] following urinary retention with chronic lou catheter. Issues with lou catheter and it was removed. Diagnosed with enterococcal UTI/Bacteremia. Has lou catheter in. To complete course of antibiotics. Documentation: UTI RISK FACTORS (per H&P) Urinary retention. History indwelling catheter. TREATMENT: (per progress notes/medications) PO Amoxicillin. Monitor electrolytes/blood counts. (This form is maintained as a part of the permanent medical record) 2014 [employer], [employer]. All Rights Reserved [email or web address] [phone] [email or web address]
== END 2018-03-23 17:09 | disposition home or self-care (01) | DRG 690 ==
LOC: NAV ACUTE 13:30
PROVIDERS: ADMIT Internal Medicine; ATTEND Internal Medicine
DX: N39.0 Urinary tract infection, site not specified (principal); R78.81 Bacteremia; E87.1 Hypo-osmolality and hyponatremia; C79.9 Secondary malignant neoplasm of unspecified site; B95.2 Enterococcus as the cause of diseases classified elsewhere; R33.9 Retention of urine, unspecified; C61 Malignant neoplasm of prostate; F41.0 Panic disorder [episodic paroxysmal anxiety]; I10 Essential (primary) hypertension; R53.1 Weakness; D72.829 Elevated white blood cell count, unspecified; M19.90 Unspecified osteoarthritis, unspecified site; G25.0 Essential tremor; F17.220 Nicotine dependence, chewing tobacco, uncomplicated; Z79.82 Long term (current) use of aspirin; Z79.899 Other long term (current) drug therapy
CPT/HCPCS: 36415; 80048; 85025; 87086; G8978-GP-CJ; G8979-GP-CI; J1644; J7512; Q0167